=== PATIENT | male | born 1960 | race Caucasian/White ===

== ENCOUNTER 2017-01-09 07:50 | Emergency (ER) | payer MEDICAID ==
[~2017-01-09] VITALS: Ht 170.2 cm; Wt 94.6 kg
[2017-01-09 07:54] VITALS: BP 144/89
[2017-01-09] MEDS ORDERED: KETOROLAC 30 MG/1 ML ONE (08:30)
[2017-01-09] MEDS ORDERED: DIAZEPAM 5 MG TABLET ONE (08:30)
[2017-01-09] MEDS ORDERED: DIAZEPAM 5 MG TABLET PO ONE (08:30)
[2017-01-09] MEDS ORDERED: KETOROLAC 30 MG/1 ML IM ONE (08:30)
== END 2017-01-09 10:23 | disposition home or self-care (01) ==
LOC: ED 10:02
DX: M51.36 Other intervertebral disc degeneration, lumbar region (principal); I10 Essential (primary) hypertension
CPT/HCPCS: 72110; 96372; 99284; J1885

== ENCOUNTER 2017-09-24 11:17 | Day surgery (SDC) | payer MEDICAID ==
[~2017-09-24] VITALS: Ht 170.2 cm; Wt 88.6 kg
[~2017-09-24 11:17] MED LIST: HYDR-3240 PO; LISI40TA PO; LISI5TAB7 PO; TRAM50TA2 PO
[2017-09-24] MEDS ORDERED: LACTATED RINGERS 1,000 ML IV SCH (12:38)
[2017-09-24 13:04] VITALS: BP 125/82
[2017-09-24] MEDS ORDERED: ROPIvacaine/PF 0.5%, 30 ML ONE (14:00)
[2017-09-24] MEDS ORDERED: LIDOCAINE/MPF 2%-EPI 1:200K, 20 ML ONE (14:00)
[2017-09-24] MEDS ORDERED: EPINEPHRINE 1 MG/ML, 1ML ONE (14:18)
[2017-09-24] MEDS ORDERED: FENTANYL PF 250 MCG/5ML ONE ×2 (14:33→17:10)
[2017-09-24] MEDS ORDERED: MIDAZOLAM 1 MG/ML, 2ML ONE ×2 (14:33→14:35)
[2017-09-24] MEDS ORDERED: PROPOFOL 10 MG/ML, 20ML ONE (14:35)
[2017-09-24] MEDS ORDERED: ACETAMINOPHEN 650 MG/20.3 ML UDC ONE (15:33)
[2017-09-24] MEDS ORDERED: OXYcodone 5 MG/5 ML ORAL.SOL UDC ONE (15:34)
[2017-09-24] MEDS: ACETAMINOPHEN 325 MG TABLET PO PRN (15:55)
[2017-09-24] MEDS ORDERED: ONDANSETRON 2MG/ML, 2ML IVPush PRN (16:00)
[2017-09-24] MEDS ORDERED: FENTANYL PF 100 MCG/2ML IV PRN (16:00)
[2017-09-24] MEDS ORDERED: MEPERIDINE/PF 25MG/0.5ML IVPush PRN (16:00)
[2017-09-24] MEDS ORDERED: morphine SULFATE 10 MG/ML, 1ML IV PRN (16:00)
[2017-09-24] MEDS ORDERED: OXYcodone 5 MG/5 ML ORAL.SOL UDC PO PRN (16:00)
[2017-09-24] MEDS ORDERED: hydrALAzine 20 MG/ML, 1ML ONE (16:29)
[2017-09-24] MEDS ORDERED: LABETALOL 5MG/ML, 20ML ONE (16:50)
[2017-09-24] MEDS: LABETALOL 5MG/ML, 20ML IV PRN ×2 (16:51→17:05)
[2017-09-24] MEDS ORDERED: KETOROLAC 30 MG/1 ML ONE (16:53)
[2017-09-24] MEDS ORDERED: KETOROLAC 30 MG/1 ML IVPush PRN (17:00)
[2017-09-24] MEDS ORDERED: hydrALAzine 20 MG/ML, 1ML IV ONE (17:00)
[2017-09-24] MEDS ORDERED: hydrALAzine 20 MG/ML, 1ML IV PRN (17:30)
== END 2017-09-24 18:15 | disposition home or self-care (01) ==
LOC: OUT 11:17
PROVIDERS: ATTEND Orthopaedic Surgery
DX: M23.203 Derangement of unspecified medial meniscus due to old tear or injury, right knee (principal); M23.200 Derangement of unspecified lateral meniscus due to old tear or injury, right knee; M23.41 Loose body in knee, right knee; M17.11 Unilateral primary osteoarthritis, right knee; M65.861 Other synovitis and tenosynovitis, right lower leg; E66.9 Obesity, unspecified; I10 Essential (primary) hypertension
CPT/HCPCS: 29876; 29880; 88305; J0171; J0360; J2250; J2405; J2704; J2795; J3010; J7120; J3490

== ENCOUNTER → 2017-10-11 | Outpatient (CLI) | payer MEDICAID ==
[~2017-10-11] MED LIST changes: +tramadol PO
== END | disposition home or self-care (01) ==
LOC: RAD 15:42
PROVIDERS: ATTEND Orthopaedic Surgery
DX: M25.461 Effusion, right knee (principal); R60.0 Localized edema

== ENCOUNTER 2017-10-14 14:12 | Inpatient (IN) | payer MEDICAID ==
[~2017-10-14] VITALS: Ht 170.2 cm; Wt 84.6 kg
[~2017-10-14 14:12] MED LIST changes: -tramadol PO
[2017-10-14 15:01] VITALS: BP 137/91
[2017-10-14] MEDS ORDERED: FENTANYL PF 100 MCG/2ML ONE ×2 (15:02→15:56)
[2017-10-14] MEDS ORDERED: MIDAZOLAM 1 MG/ML, 2ML ONE (15:02)
[2017-10-14] MEDS ORDERED: tramadol PO (15:04)
[2017-10-14] MEDS ORDERED: LACTATED RINGERS 1,000 ML IV SCH (15:04)
[2017-10-14] MEDS ORDERED: FAMOTIDINE 20 MG TABLET ONE (15:10)
[2017-10-14] MEDS ORDERED: ACETAMINOPHEN 500 MG TABLET ONE (15:11)
[2017-10-14] MEDS ORDERED: OXYcodone IR 5MG TABLET ONE (15:11)
[2017-10-14] MEDS ORDERED: GABAPENTIN 300 MG CAPSULE ONE (15:12)
[2017-10-14] MEDS: OXYcodone IR 5MG TABLET PO ONE ×2 (15:14→15:29)
[2017-10-14] MEDS: ACETAMINOPHEN 500 MG TABLET PO ONE ×2 (15:14→15:29)
[2017-10-14] MEDS ORDERED: GABAPENTIN 300 MG CAPSULE PO ONE (15:30)
[2017-10-14] MEDS ORDERED: FAMOTIDINE 20 MG TABLET PO ONE (15:30)
[2017-10-14] MEDS ORDERED: CEFAZOLIN 1,000 MG ONE (15:37)
[2017-10-14] MEDS ORDERED: PROPOFOL 10 MG/ML, 20ML ONE (15:37)
[2017-10-14] MEDS ORDERED: KETOROLAC 30 MG/1 ML ONE (15:37)
[2017-10-14] MEDS ORDERED: DEXAMETHASONE 4 MG/ML, 1ML ONE (15:37)
[2017-10-14] MEDS ORDERED: FENTANYL PF 250 MCG/5ML ONE (16:01)
[2017-10-14] MEDS ORDERED: ROPIvacaine/PF 0.5%, 30 ML INFIL ONE (16:09)
[2017-10-14] MEDS ORDERED: LABETALOL 5MG/ML, 20ML IV PRN (16:30)
[2017-10-14] MEDS ORDERED: morphine SULFATE 10 MG/ML, 1ML IV PRN ×2 (16:30→19:00)
[2017-10-14] MEDS ORDERED: EPHEDRINE 50 MG/ML, 1ML IVPush PRN (16:30)
[2017-10-14] MEDS ORDERED: DIAZEPAM 5 MG/ML, 2ML IVPush PRN (16:30)
[2017-10-14] MEDS ORDERED: METOPROLOL 1 MG/ML, 5ML IV PRN (16:30)
[2017-10-14] MEDS ORDERED: HYDROcodone/APAP 7.5-325MG/15ML UDC PO PRN (16:30)
[2017-10-14] MEDS ORDERED: MIDAZOLAM 1 MG/ML, 2ML IV PRN (16:30)
[2017-10-14] MEDS ORDERED: PROMETHAZINE 25 MG/ML, 1ML IV PRN (16:30)
[2017-10-14] MEDS ORDERED: PROMETHAZINE 12.5 MG SUPP PR PRN (16:30)
[2017-10-14] MEDS ORDERED: FENTANYL PF 100 MCG/2ML IV PRN (16:30)
[2017-10-14] MEDS ORDERED: OXYcodone 5 MG/5 ML ORAL.SOL UDC PO PRN (16:30)
[2017-10-14] MEDS ORDERED: ONDANSETRON 2MG/ML, 2ML IVPush PRN (16:30)
[2017-10-14] MEDS ORDERED: MEPERIDINE/PF 25MG/0.5ML IVPush PRN (16:30)
[2017-10-14] MEDS ORDERED: ALBUTEROL SULFATE 2.5 MG/3 ML NPPB PRN (16:30)
[2017-10-14] MEDS ORDERED: hydrALAzine 20 MG/ML, 1ML ONE (17:05)
[2017-10-14] MEDS: hydrALAzine 20 MG/ML, 1ML IV PRN ×2 (17:09→17:47)
[2017-10-14] MEDS ORDERED: ONDANSETRON 2MG/ML, 2ML IV PRN (19:00)
[2017-10-14] MEDS ORDERED: DIPHENHYDRAMINE 25 MG CAPSULE PO PRN (19:00)
[2017-10-14] MEDS ORDERED: LORazepam 2 MG/ML, 1ML IV PRN (19:00)
[2017-10-14] MEDS ORDERED: PHARMACOKINETIC MONITORING MC PRN (19:00)
[2017-10-14] MEDS ORDERED: MAGNESIUM HYDROXIDE 8%, 30ML UDC PO PRN (19:00)
[2017-10-14] MEDS ORDERED: HYDROcodone/APAP 10/325 MG TABLET PO PRN (19:00)
[2017-10-14] MEDS ORDERED: PROMETHAZINE 25 MG/ML, 1ML IM PRN (19:00)
[2017-10-14] MEDS ORDERED: PHARMACOKINETIC CONSULTATION MC ONE (19:00)
[2017-10-14] MEDS ORDERED: SENNA/DOCUSATE TABLET PO PRN (19:00)
[2017-10-14] MEDS ORDERED: VANCOMYCIN PER PHARMACY MC PRN (19:00)
[2017-10-14] MEDS ORDERED: BISACODYL 10 MG SUPP PR PRN (19:00)
[2017-10-14] MEDS ORDERED: LORazepam 1MG TABLET PO PRN (19:00)
[2017-10-14] MEDS ORDERED: DIAZEPAM 5 MG TABLET PO PRN (19:00)
[2017-10-14] MEDS ORDERED: OXYcodone/APAP 5/325MG TABLET PO PRN (19:00)
[2017-10-14] MEDS: AMPICILLIN/SULBACTAM 3 GM in SODIUM CHLORIDE 0.9% 100 ML IV SCH (20:23)
[2017-10-14] MEDS: SODIUM CHLORIDE FLUSH 10ML SYR IVF SCH (20:24)
[2017-10-14] MEDS: DOCUSATE 100 MG CAPSULE PO SCH (20:24)
[2017-10-14] MEDS: D5%-LACTATED RINGERS 1,000 ML IV SCH (20:58)
[2017-10-14] MEDS: VANCOMYCIN 1,500 MG in SODIUM CHLORIDE 0.9% 250 ML IV SCH (22:12)
[2017-10-15 00:02] VITALS: BP 126/81
[2017-10-15] MEDS: AMPICILLIN/SULBACTAM 3 GM in SODIUM CHLORIDE 0.9% 100 ML IV SCH ×4 (02:23→19:33)
[2017-10-15 04:11] VITALS: BP 128/68
[2017-10-15] MEDS: D5%-LACTATED RINGERS 1,000 ML IV SCH ×2 (05:00→15:09)
[2017-10-15 05:17] LABS: CREATININE 0.86 mg/dL (0.7-1.3)
[2017-10-15] MEDS: ENOXAPARIN 40 MG/0.4 ML SQ SCH (06:20)
[2017-10-15 07:21] VITALS: BP 144/78
[2017-10-15] MEDS: SODIUM CHLORIDE FLUSH 10ML SYR IVF SCH ×2 (07:45→19:33)
[2017-10-15] MEDS: DOCUSATE 100 MG CAPSULE PO SCH ×2 (07:49→19:33)
[2017-10-15] MEDS: VANCOMYCIN 1,500 MG in SODIUM CHLORIDE 0.9% 250 ML IV SCH ×2 (10:01→21:45)
[2017-10-15 15:12] VITALS: BP 145/86
[2017-10-15 18:32] VITALS: BP 153/81
[2017-10-16 00:39] VITALS: BP 138/79
[2017-10-16] MEDS: D5%-LACTATED RINGERS 1,000 ML IV SCH ×3 (01:00→19:50)
[2017-10-16] MEDS: AMPICILLIN/SULBACTAM 3 GM in SODIUM CHLORIDE 0.9% 100 ML IV SCH ×4 (02:13→19:50)
[2017-10-16] MEDS: ENOXAPARIN 40 MG/0.4 ML SQ SCH (06:00)
[2017-10-16 06:48] VITALS: BP 155/89
[2017-10-16] MEDS: SODIUM CHLORIDE FLUSH 10ML SYR IVF SCH ×2 (08:05→19:51)
[2017-10-16] MEDS: DOCUSATE 100 MG CAPSULE PO SCH ×2 (08:05→19:43)
[2017-10-16] MEDS: VANCOMYCIN 1,500 MG in SODIUM CHLORIDE 0.9% 250 ML IV SCH ×2 (10:23→21:59)
[2017-10-16 15:12] VITALS: BP 126/76
[2017-10-16 19:12] VITALS: BP 155/91
[2017-10-17] MEDS: AMPICILLIN/SULBACTAM 3 GM in SODIUM CHLORIDE 0.9% 100 ML IV SCH ×4 (02:14→19:42)
[2017-10-17 02:47] VITALS: BP 138/81
[2017-10-17] MEDS: ENOXAPARIN 40 MG/0.4 ML SQ SCH (05:24)
[2017-10-17] MEDS: D5%-LACTATED RINGERS 1,000 ML IV SCH ×2 (05:25→10:27)
[2017-10-17 07:22] VITALS: BP 145/87
[2017-10-17] MEDS: DOCUSATE 100 MG CAPSULE PO SCH ×2 (08:03→20:13)
[2017-10-17] MEDS: SODIUM CHLORIDE FLUSH 10ML SYR IVF SCH ×2 (08:26→19:42)
[2017-10-17] MEDS: VANCOMYCIN 1,500 MG in SODIUM CHLORIDE 0.9% 250 ML IV SCH ×2 (10:23→21:58)
[2017-10-17 12:16] VITALS: BP 140/83
[2017-10-17 19:34] VITALS: BP 146/82
[2017-10-17] MEDS: ACETAMINOPHEN 325 MG TABLET PO PRN (20:30)
[2017-10-18] MEDS: AMPICILLIN/SULBACTAM 3 GM in SODIUM CHLORIDE 0.9% 100 ML IV SCH ×4 (02:17→20:04)
[2017-10-18 02:43] VITALS: BP 111/60
[2017-10-18] MEDS: D5%-LACTATED RINGERS 1,000 ML IV SCH ×2 (03:00→20:00)
[2017-10-18] MEDS: ENOXAPARIN 40 MG/0.4 ML SQ SCH (05:14)
[2017-10-18 06:55] VITALS: BP 148/89
[2017-10-18] MEDS: ACETAMINOPHEN 325 MG TABLET PO PRN ×2 (07:54→13:32)
[2017-10-18] MEDS: DOCUSATE 100 MG CAPSULE PO SCH ×2 (07:54→20:05)
[2017-10-18] MEDS: SODIUM CHLORIDE FLUSH 10ML SYR IVF SCH ×2 (10:21→20:04)
[2017-10-18 10:44] LABS: CREATININE 0.82 mg/dL (0.7-1.3)
[2017-10-18 10:48] LABS: VANCOMYCIN,TROUGH 16.3 mcg/mL (5.0-10.0)
[2017-10-18 12:27] VITALS: BP 145/85
[2017-10-18] MEDS ORDERED: LISINOPRIL 20 MG TABLET ONE (13:45)
[2017-10-18] MEDS: LISINOPRIL 20 MG TABLET PO SCH (13:47)
[2017-10-18] MEDS: VANCOMYCIN 1,500 MG in SODIUM CHLORIDE 0.9% 250 ML IV SCH (15:29)
[2017-10-18 20:39] VITALS: BP 145/88
[2017-10-19] MEDS: AMPICILLIN/SULBACTAM 3 GM in SODIUM CHLORIDE 0.9% 100 ML IV SCH ×4 (01:50→20:25)
[2017-10-19 03:00] VITALS: BP_SYST 118; BP_SYST 141; BP_DIAS 68; BP_DIAS 78
[2017-10-19] MEDS: VANCOMYCIN 1,500 MG in SODIUM CHLORIDE 0.9% 250 ML IV SCH ×2 (03:02→16:15)
[2017-10-19] MEDS: D5%-LACTATED RINGERS 1,000 ML IV SCH ×2 (06:00→16:00)
[2017-10-19] MEDS: ENOXAPARIN 40 MG/0.4 ML SQ SCH (06:00)
[2017-10-19] MEDS: LISINOPRIL 20 MG TABLET PO SCH (08:03)
[2017-10-19] MEDS: SODIUM CHLORIDE FLUSH 10ML SYR IVF SCH ×2 (08:04→20:25)
[2017-10-19] MEDS: DOCUSATE 100 MG CAPSULE PO SCH ×2 (08:16→20:15)
[2017-10-19] MEDS: ACETAMINOPHEN 325 MG TABLET PO PRN ×2 (08:31→14:06)
[2017-10-19 08:35] VITALS: BP 149/92
[2017-10-19 14:00] VITALS: BP 136/83
[2017-10-19 19:53] VITALS: BP 130/73
[2017-10-20] MEDS: D5%-LACTATED RINGERS 1,000 ML IV SCH ×3 (02:00→22:00)
[2017-10-20] MEDS: AMPICILLIN/SULBACTAM 3 GM in SODIUM CHLORIDE 0.9% 100 ML IV SCH ×4 (02:28→20:25)
[2017-10-20] MEDS: ACETAMINOPHEN 325 MG TABLET PO PRN ×2 (03:30→20:24)
[2017-10-20] MEDS: VANCOMYCIN 1,500 MG in SODIUM CHLORIDE 0.9% 250 ML IV SCH ×2 (03:31→15:28)
[2017-10-20 04:00] VITALS: BP 125/76
[2017-10-20] MEDS: ENOXAPARIN 40 MG/0.4 ML SQ SCH (06:00)
[2017-10-20 06:56] VITALS: BP 133/84
[2017-10-20] MEDS: DOCUSATE 100 MG CAPSULE PO SCH ×2 (08:12→20:25)
[2017-10-20] MEDS: LISINOPRIL 20 MG TABLET PO SCH (08:12)
[2017-10-20] MEDS: SODIUM CHLORIDE FLUSH 10ML SYR IVF SCH ×2 (08:12→20:25)
[2017-10-20 12:31] VITALS: BP 143/87
[2017-10-20 19:23] VITALS: BP 133/81
[2017-10-21 00:45] VITALS: BP 136/79
[2017-10-21] MEDS: AMPICILLIN/SULBACTAM 3 GM in SODIUM CHLORIDE 0.9% 100 ML IV SCH ×3 (02:00→14:18)
[2017-10-21] MEDS: VANCOMYCIN 1,500 MG in SODIUM CHLORIDE 0.9% 250 ML IV SCH (03:34)
[2017-10-21] MEDS: ENOXAPARIN 40 MG/0.4 ML SQ SCH (06:00)
[2017-10-21 07:15] VITALS: BP 120/70
[2017-10-21] MEDS: SODIUM CHLORIDE FLUSH 10ML SYR IVF SCH (08:35)
[2017-10-21] MEDS: D5%-LACTATED RINGERS 1,000 ML IV SCH (08:36)
[2017-10-21] MEDS: DOCUSATE 100 MG CAPSULE PO SCH (08:36)
[2017-10-21] MEDS: LISINOPRIL 20 MG TABLET PO SCH (08:36)
[2017-10-21] MEDS ORDERED: ASPIRIN 325 MG TABLET EC PO SCH (09:00)
[2017-10-21 12:55] VITALS: BP 145/84
[2017-10-21] MEDS ORDERED: OXYC-302 PO (14:45)
[2017-10-21] MEDS ORDERED: ONDA4TAB7 PO (14:45)
[2017-10-21] MEDS ORDERED: LINE600T37 PO (14:46)
[2017-10-22] MEDS ORDERED: ASPI-650 PO (14:17)
== END 2017-10-21 15:20 | disposition home or self-care (01) | DRG 489 ==
LOC: OR 14:12 → 4NOR 18:19 → OR 18:22
PROVIDERS: ADMIT Orthopaedic Surgery; ATTEND Orthopaedic Surgery
PROC: 0SBC4ZZ Excision of Right Knee Joint, Percutaneous Endoscopic Approach (ICD-10-PCS; 2017-10-14)
PROC: 0S9C4ZZ Drainage of Right Knee Joint, Percutaneous Endoscopic Approach (ICD-10-PCS; 2017-10-14)
PROC: 0SBC4ZZ Excision of Right Knee Joint, Percutaneous Endoscopic Approach (ICD-10-PCS; principal; 2017-10-14 16:30)
PROC: 02HV33Z Insertion of Infusion Device into Superior Vena Cava, Percutaneous Approach (ICD-10-PCS; 2017-10-15)
PROC: B548ZZA Ultrasonography of Superior Vena Cava, Guidance (ICD-10-PCS; 2017-10-15)
DX: M65.161 Other infective (teno)synovitis, right knee (principal)
CPT/HCPCS: 36415; 36569; 76937; 77001; 80202; 82565; 84520; 87070; 87075; 87205; 89051; 89060; J0295; J0690; J1100; J1650; J1885; J2250; J2704; J2795; J3010; J3370; C1751; J0360; J7050; J7120; J7121

== ENCOUNTER 2017-12-14 14:58 | Inpatient (IN) | payer MEDICAID ==
[~2017-12-14] VITALS: Ht 170.2 cm; Wt 86.7 kg
[~2017-12-14 14:58] MED LIST changes: +ASPI-650 PO; +LACTATED RINGERS 1,000 ML IV SCH; +LINE600T37 PO; +ONDA4TAB7 PO; +OXYC-302 PO; +tramadol PO
[2017-12-14 15:17] VITALS: BP 134/80
[2017-12-14] MEDS ORDERED: FENTANYL PF 250 MCG/5ML ONE (15:41)
[2017-12-14] MEDS ORDERED: MIDAZOLAM 1 MG/ML, 2ML ONE (15:41)
[2017-12-14] MEDS ORDERED: PROPOFOL 10 MG/ML, 20ML ONE (15:42)
[2017-12-14] MEDS ORDERED: ROCURONIUM 10MG/ML,5ML ONE (15:54)
[2017-12-14] MEDS ORDERED: CEFAZOLIN 1,000 MG ONE ×2 (15:55)
[2017-12-14] MEDS ORDERED: SUCCINYLCHOLINE 20 MG/ML, 10ML ONE (15:55)
[2017-12-14] MEDS ORDERED: WATER-INJECTION,STERILE 10 ML IV ONE (15:55)
[2017-12-14] MEDS ORDERED: VANCOMYCIN 1,000 MG ONE (15:57)
[2017-12-14] MEDS ORDERED: morphine SULFATE 10 MG/ML, 1ML IVPush PRN (16:00)
[2017-12-14] MEDS ORDERED: DIPHENHYDRAMINE 50 MG CAPSULE PO PRN (16:00)
[2017-12-14] MEDS ORDERED: VANCOMYCIN PER PHARMACY MC PRN (16:00)
[2017-12-14] MEDS ORDERED: PROMETHAZINE 25 MG SUPP PR PRN (16:00)
[2017-12-14] MEDS ORDERED: MEPERIDINE/PF 25MG/0.5ML IVPush PRN (16:00)
[2017-12-14] MEDS ORDERED: PROMETHAZINE 25 MG/ML, 1ML IV PRN (16:00)
[2017-12-14] MEDS ORDERED: MORPHINE SULFATE 4 MG/ML, 1ML IVPush PRN (16:00)
[2017-12-14] MEDS ORDERED: VANCOMYCIN PMX 1GM/200ML 200 ML IVPB SCH (16:00)
[2017-12-14] MEDS ORDERED: OXYcodone 5 MG/5 ML ORAL.SOL UDC PO PRN (16:00)
[2017-12-14] MEDS ORDERED: ONDANSETRON 2MG/ML, 2ML IVPush PRN (16:00)
[2017-12-14] MEDS ORDERED: PROMETHAZINE 12.5 MG SUPP PR PRN (16:00)
[2017-12-14] MEDS ORDERED: ZOLPIDEM 5MG TABLET PO PRN (16:00)
[2017-12-14] MEDS ORDERED: HYDROcodone/APAP 5/325 TABLET PO PRN (16:00)
[2017-12-14] MEDS ORDERED: ONDANSETRON ODT 8 MG PO PRN (16:00)
[2017-12-14] MEDS ORDERED: LABETALOL 5MG/ML, 20ML IV PRN (16:00)
[2017-12-14] MEDS ORDERED: ACETAMINOPHEN 325 MG TABLET PO PRN ×2 (16:00)
[2017-12-14 16:20] LABS: HCT (SEDRATE) 43.3 % (39.2-51.8)
[2017-12-14] MEDS ORDERED: FENTANYL PF 100 MCG/2ML ONE ×2 (16:26→17:06)
[2017-12-14] MEDS ORDERED: HYDROmorphone 2 MG/ML, 1ML ONE (17:06)
[2017-12-14] MEDS ORDERED: OXYcodone 5 MG/5 ML ORAL.SOL UDC ONE (17:07)
[2017-12-14] MEDS: FENTANYL PF 100 MCG/2ML IV PRN ×2 (17:08→17:26)
[2017-12-14] MEDS: HYDROmorphone 1 MG/ML, 1ML IV PRN ×4 (17:10→17:58)
[2017-12-14] MEDS ORDERED: hydrALAzine 20 MG/ML, 1ML ONE (17:42)
[2017-12-14] MEDS: hydrALAzine 20 MG/ML, 1ML IV PRN ×2 (17:45→18:28)
[2017-12-14] MEDS: KETOROLAC 30 MG/1 ML IVPush SCH (19:34)
[2017-12-14 19:39] VITALS: BP 157/89
[2017-12-14] MEDS: POTASSIUM CHLORIDE 20 MEQ in SODIUM CHLORIDE 0.9% 1,000 ML IV SCH (20:02)
[2017-12-14] MEDS: DOCUSATE 100 MG CAPSULE PO SCH (20:25)
[2017-12-14] MEDS ORDERED: PHARMACOKINETIC MONITORING MC PRN (21:00)
[2017-12-14] MEDS: VANCOMYCIN 1,800 MG in SODIUM CHLORIDE 0.9% 250 ML IV SCH (22:48)
[2017-12-14 23:59] VITALS: BP 144/83
[2017-12-15] MEDS: CEFAZOLIN PMX 2GM/50ML 50 ML IVPB SCH ×2 (01:06→09:00)
[2017-12-15] MEDS: KETOROLAC 30 MG/1 ML IVPush SCH ×2 (03:20→11:52)
[2017-12-15 03:24] VITALS: BP 139/73
[2017-12-15 04:19] VITALS: BP 153/85
[2017-12-15 05:34] LABS: BASOPHILS # (AUTO) 0.04 x10^3/uL (0-0.1); BASOPHILS % (AUTO) 0 % (0-1); EOSINOPHILS # (AUTO) 0.04 x10^3/uL (0-0.4); EOSINOPHILS % (AUTO) 0 % (1-7); LYMPHOCYTES # (AUTO) 1.56 x10^3/uL (1-3.4); LYMPHOCYTES % (AUTO) 12 % (22-44); MD NO; MEAN CORPUSCULAR HEMOGLOBIN 30.4 pg (27.5-34.5); MEAN CORPUSCULAR HGB CONC 34.8 g/dL (33.2-36.2); MEAN CORPUSCULAR VOLUME 87.5 fL (81-97); MEAN PLATELET VOLUME 7.2 fL (7.4-10.4); MONOCYTES # (AUTO) 0.76 x10^3/uL (0.2-0.8); MONOCYTES % (AUTO) 6 % (2-9); NEUTROPHILS % (AUTO) 81 % (42-75); PLATELET COUNT 306 x10^3/uL (130-400); RED BLOOD COUNT 4.52 x10^6/uL (4.38-5.82); RED CELL DISTRIBUTION WIDTH 16.1 % (9.4-14.8)
[2017-12-15 05:44] LABS: CHLORIDE 104 mmol/L (98-107)
[2017-12-15 05:52] LABS: ANION GAP 9 mmol/L (5-15); C-REACTIVE PROTEIN, QUANT 0.58 mg/dL (0.02-0.49); CREATININE 0.71 mg/dL (0.7-1.3)
[2017-12-15 06:20] LABS: HCT (SEDRATE) 43.3 % (39.2-51.8)
[2017-12-15 07:08] VITALS: BP 130/80
[2017-12-15] MEDS: ASPIRIN 81 MG TABLET CHEW PO SCH ×3 (09:00→21:42)
[2017-12-15] MEDS: DOCUSATE 100 MG CAPSULE PO SCH ×2 (09:01→21:42)
[2017-12-15] MEDS: LISINOPRIL 20 MG TABLET PO SCH (09:01)
[2017-12-15] MEDS: MULTIVITAMINS/MINERALS TABLET PO SCH (09:01)
[2017-12-15] MEDS: VANCOMYCIN 1,800 MG in SODIUM CHLORIDE 0.9% 250 ML IV SCH (11:00)
[2017-12-15] MEDS: POTASSIUM CHLORIDE 20 MEQ in SODIUM CHLORIDE 0.9% 1,000 ML IV SCH (11:52)
[2017-12-15] MEDS: OXYcodone/APAP 5/325MG TABLET PO PRN (12:23)
[2017-12-15 13:48] VITALS: BP 162/90
[2017-12-15] MEDS: CEFTAROLINE 600 MG in SODIUM CHLORIDE 0.9% 100 ML IV SCH (17:18)
[2017-12-15 19:06] VITALS: BP 146/83
[2017-12-15] MEDS ORDERED: ONDANSETRON 4 MG TABLET PO PRN (20:00)
[2017-12-15] MEDS ORDERED: ONDANSETRON 2MG/ML, 2ML IVPush PRN (20:00)
[2017-12-16 00:59] VITALS: BP 135/87
[2017-12-16] MEDS: POTASSIUM CHLORIDE 20 MEQ in SODIUM CHLORIDE 0.9% 1,000 ML IV SCH ×3 (01:23→16:28)
[2017-12-16] MEDS: CEFTAROLINE 600 MG in SODIUM CHLORIDE 0.9% 100 ML IV SCH ×3 (01:23→17:37)
[2017-12-16] MEDS: OXYcodone/APAP 5/325MG TABLET PO PRN (05:19)
[2017-12-16 07:09] VITALS: BP 143/76
[2017-12-16] MEDS: MULTIVITAMINS/MINERALS TABLET PO SCH (09:24)
[2017-12-16] MEDS: LISINOPRIL 20 MG TABLET PO SCH (09:24)
[2017-12-16] MEDS: DOCUSATE 100 MG CAPSULE PO SCH ×2 (09:24→20:58)
[2017-12-16] MEDS: ASPIRIN 81 MG TABLET CHEW PO SCH ×2 (09:24→20:58)
[2017-12-16 13:47] VITALS: BP 139/83
[2017-12-16 20:18] VITALS: BP 138/84
[2017-12-17] MEDS: CEFTAROLINE 600 MG in SODIUM CHLORIDE 0.9% 100 ML IV SCH ×2 (01:22→09:27)
[2017-12-17 01:27] VITALS: BP 125/73
[2017-12-17] MEDS: OXYcodone/APAP 5/325MG TABLET PO PRN (01:42)
[2017-12-17] MEDS: POTASSIUM CHLORIDE 20 MEQ in SODIUM CHLORIDE 0.9% 1,000 ML IV SCH ×2 (04:18→14:24)
[2017-12-17 06:49] VITALS: BP 135/75
[2017-12-17] MEDS: MULTIVITAMINS/MINERALS TABLET PO SCH (09:27)
[2017-12-17] MEDS: DOCUSATE 100 MG CAPSULE PO SCH (09:27)
[2017-12-17] MEDS: ASPIRIN 81 MG TABLET CHEW PO SCH (09:27)
[2017-12-17] MEDS: LISINOPRIL 20 MG TABLET PO SCH (09:27)
[2017-12-17] MEDS ORDERED: LIDOCAINE-MPF 1%, 2ML ONE (10:10)
[2017-12-17 14:36] VITALS: BP 102/68
[2017-12-17] MEDS ORDERED: OXYC5CAP2 PO (16:29)
[2017-12-17] MEDS ORDERED: TRAM50TA2 PO (16:30)
[2017-12-17] MEDS ORDERED: MELO7.5T5 PO (16:30)
[2017-12-23] MEDS ORDERED: ASPIRIN 325 MG TABLET EC PO SCH (08:00)
== END 2017-12-17 16:43 | disposition home or self-care (01) | DRG 487 ==
LOC: OR 14:58 → ORIP 15:50 → 4NOR 18:56 → DCLOUNGE 12-17 16:38
PROVIDERS: ADMIT Orthopaedic Surgery; ATTEND Orthopaedic Surgery
PROC: 0SBC0ZZ Excision of Right Knee Joint, Open Approach (ICD-10-PCS; 2017-12-14)
PROC: 0S9C0ZZ Drainage of Right Knee Joint, Open Approach (ICD-10-PCS; principal; 2017-12-14 15:00)
PROC: B5181ZA Fluoroscopy of Superior Vena Cava using Low Osmolar Contrast, Guidance (ICD-10-PCS; 2017-12-17)
PROC: 02HV33Z Insertion of Infusion Device into Superior Vena Cava, Percutaneous Approach (ICD-10-PCS; 2017-12-17)
DX: M00.861 Arthritis due to other bacteria, right knee (principal)
CPT/HCPCS: 36415; 36569; 76937; 77001; 80048; 85025; 85651; 86038; 86140; 86200; 86430; 87070; 87075; 87176; 87205; J0690; J0712; J1170; J1885; J2250; J2405; J2704; J3010; J3370; J3480; J3490; C1751; J0330; J0360; J7030; J7050